=== PATIENT | female | born 2005 | race Caucasian/White ===

== ENCOUNTER 2025-06-18 11:16 | Emergency (ER) | payer SELFPAY ==
[2025-06-18 11:18] VITALS: BP 92/63; PULSE 94; RESP 17; TEMP 36.3; O2SAT 99
[2025-06-18] MEDS: ONDANSETRON INJ 4 MG/2 ML VIAL IV PUSH (13:09)
[2025-06-18] MEDS: FAMOTIDINE 20 MG/2 ML VIAL IV PUSH (13:09)
[2025-06-18] MEDS: LACTATED RINGERS 1,000 ML 999 ML IV CONT (13:09)
[2025-06-18 13:11] VITALS: BP 122/74; PULSE 77; RESP 16; O2SAT 97
--- NOTE | 2025-06-18 13:23 | ED.ALCOHOL ---
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 She states that she drank signficant amount yesterday while at work. She reports drinking vodka and emilia from the morning until the night. She states that she does not remember parts of last night. She woke up this morning with nausea and vomiting. She is unable to keep anything down. She reports intermittent abdominal pain but is has resolved at this point,. LMP 2 weeks ago Last drink: hours (ago) Chronic alcohol use: Yes Recent trauma: No Associated symptoms: nausea, vomiting and abdominal pain Treatments prior to arrival: none Related Data Allergies Allergy/AdvReac Type Severity Reaction Status Date / Time No Known Allergies Allergy Verified 06/18/25 13:08 [facility] Past Medical History Medical History (Updated 06/18/25 @ 21:08 by Gisselle Landeros MD) Patient denies medical problems Social History Social History (Updated 06/18/25 @ 13:26 by Gisselle Landeros MD) Alcohol intake: current Exam Const: General: no acute distress Nutritional Appearance: well nourished Orientation/consciousness: patient oriented x3 HENMT: Head: normal to inspection Throat: posterior oropharynx normal and uvula midline Resp: Effort & Inspection: normal respiratory effort Auscultation: clear to auscultation bilaterally Cardio: Rate: regular rate Rhythm: regular rhythm Heart sounds: no murmurs GI: GI Palp: Yes Soft to palpation, Yes Tenderness to palpation present (GI) (epigastric), No Guarding due to palpation present (GI) and No Rigid due to palpation Auscultation: normal bowel sounds Skin: General skin exam: normal color Rashes: no rashes Neuro: General: patient oriented x3, moves all extremities and CN's II-XI intact bilaterally Extrem: General: normal to inspection Psych: Mental Status: mental status grossly normal Affect: normal affect Attitude: cooperative Course Reevaluation(s) Reevaluation #1: Patient declined CT abdomen and pelvis and she left ER before I was able to reassess. Date: 06/18/25 Time: 15:00 Vital Signs Vital signs: Vital Signs Temperature 97.3 F L 06/18/25 11:18 Pulse Rate 94 06/18/25 11:18 Respiratory Rate 17 06/18/25 11:18 Blood Pressure 92/63 L 06/18/25 11:18 Pulse Oximetry 99 06/18/25 11:18 Oxygen Delivery Room Air 06/18/25 11:18 Temperature 97.3 F L 06/18/25 11:18 Pulse Rate 77 06/18/25 13:11 Respiratory Rate 16 06/18/25 13:11 Blood Pressure 122/74 06/18/25 13:11 Pulse Oximetry 97 06/18/25 13:11 Oxygen Delivery Room Air 06/18/25 11:18 MDM - Alcohol Differential Diagnosis Differential diagnosis: Likely hypomagnesemia, alcohol intoxication, alcohol ketoacidosis and other (dehydration) Lab Data Attestation: I reviewed the patient's lab results. 06/18/25 13:11 06/18/25 13:11 Labs: Lab Results 06/18/25 06/18/25 06/18/25 Range/Units 13:11 13:53 13:55 WBC 14.7 H (4.5-10.0) K/mm3 RBC 4.76 (4.2-5.4) M/mm3 Hgb 13.7 (12.0-15.0) g/dL Hct 41.8 (37.0-47.0) % MCV 87.8 (80-100) fl MCH 28.8 (26-34) pg MCHC 32.8 (32-36) g/dl RDW 15.2 H (11.5-14.5) % Plt Count 298 (150-375) k/mm3 MPV 10.2 (7.4-10.4) fl Immature Gran % (Auto) 0.5 (0-0.5) % Neut % (Auto) 88.5 H (45.5-73.1) % Lymph % (Auto) 5.7 L (18.3-44.2) % [place] % (Auto) 4.8 (2.6-8.5) % Eos % (Auto) 0.0 (0-4.4) % Baso % (Auto) 0.5 (0.2-1.2) % Lymph # (Auto) 0.84 L (0.9-3.2) K/mm3 [place] # (Auto) 0.7 H (0.1-0.6) K/mm3 Eos # (Auto) 0.0 (0-0.3) K/mm3 Baso # (Auto) 0.1 (0.0-0.1) K/mm3 Abs Immat Gran (auto) 0.08 H (0.00-0.031) K/mm3 Absolute Neuts (auto) 13.0 H (1.3-6.7) K/mm3 Absolute Nucleated RBC 0.000 (0.0-0.012) K/mm3 Nucleated RBC % 0.0 (0.0-0.2) % Sodium 139 (137-145) mmol/L Potassium 3.8 (3.4-5.0) mmol/L Chloride 106 (98-107) mmol/L Carbon Dioxide 23 (22-30) mmol/L Anion Gap 10 (4-12) mmol/L BUN 13 (7-17) mg/dL Creatinine 0.68 L (0.7-1.0) mg/dL Estim Creat Clear Calc 96 ml/min Estimated GFR > 60 (59 - ) Glucose 91 (65-110) mg/dL Calcium 9.0 (8.4-10.2) mg/dL Total Bilirubin 0.8 (0.2-1.3) mg/dL AST 48 H (14-36) U/L ALT 18 (6-35) U/L Alkaline Phosphatase 80 (38-126) U/L Total Protein 8.0 (6.3-8.2) g/dL Albumin 4.6 (3.5-5.1) g/dL Lipase 64 (23-300) U/L Urine Color Yellow (Yellow) Urine Appearance Cloudy H (Clear) Urine pH 7.5 (5.0-9.0) Ur Specific [place] 1.022 (1.001-1.035) Urine Protein 1+ H (Negative) mg/dL Urine Glucose (UA) Negative (Negative) mg/dL Urine Ketones 2+ H (Negative) mg/dL Ur Blood (Man) Negative (Negative) Urine Nitrate Negative (Negative) Urine Bilirubin Negative (Negative) Urine Urobilinogen 1.0 (<2.0) mg/dL Leukocyte Esterase Rfl Trace H (Negative) RORY/UL Urine RBC 0-2 (0-2) /hpf Urine WBC 0-5 (0-3) /hpf Ur Squamous Epith Cells Few (Few) /hpf Urine Bacteria 1+ H /hpf Urine Casts 0-2 POC Urine HCG, Qual Negative (Negative) Discharge Plan Discharge Clinical Impression: Alcoholic intoxication Nausea and vomiting Qualifiers: Vomiting type: unspecified Qualified Code(s): R11.2 - Nausea with vomiting, unspecified Patient Disposition: Elopement After Seen by Prov Patient Language: [place] Follow-up/Referrals: PHYSICIAN,ACCOUNT LEADER [Primary Care Provider, Internal Medicine]
[2025-06-18 13:25] LABS: Hematocrit 41.8 % (37.0-47.0); Hemoglobin 13.7 g/dL (12.0-15.0); Immature Granulocyte Percent A 0.5 % (0-0.5); Lymphocytes Absolute Auto 0.84 K/mm3 (0.9-3.2); Mean Corpuscular HGB Conc 32.8 g/dl (32-36); Mean Corpuscular Hemoglobin 28.8 pg (26-34); Mean Corpuscular Volume 87.8 fl (80-100); Nucleated Red Blood Cells Absolute Auto 0.000 K/mm3 (0.0-0.012); Nucleated Red Blood Cells Perc 0.0 % (0.0-0.2); Platelet Count Result 298 k/mm3 (150-375); Red Blood Count 4.76 M/mm3 (4.2-5.4); White Blood Count 14.7 K/mm3 (4.5-10.0)
[2025-06-18 13:36] LABS: Alanine Aminotransferase 18 U/L (6-35); Albumin Level 4.6 g/dL (3.5-5.1); Alkaline Phosphatase 80 U/L (38-126); Anion Gap 10 mmol/L (4-12); Aspartate Amino Transferase 48 U/L (14-36); Bilirubin,Total 0.8 mg/dL (0.2-1.3); Blood Urea Nitrogen 13 mg/dL (7-17); Calcium 9.0 mg/dL (8.4-10.2); Carbon Dioxide 23 mmol/L (22-30); Chloride 106 mmol/L (98-107); Estimated CRCL calculation 96 ml/min; Estimated Glomerular Filt Rate > 60; Glucose 91 mg/dL (65-110); Lipase 64 U/L (23-300); Potassium 3.8 mmol/L (3.4-5.0); Sodium 139 mmol/L (137-145); Total Protein 8.0 g/dL (6.3-8.2)
[2025-06-18 13:56] LABS: BEDSIDEPREGUCG Negative (Negative)
[2025-06-18 14:04] LABS: Add Urine Microscopic? YES; Appearance Urine Cloudy (Clear); Glucose Urine UA Negative (Negative); Leukocyte Esterase Ur Trace LEU/UL (Negative); Nitrate Urine Negative (Negative); Non Pathogenic Casts 0-2; Specific Grav Ur 1.022 (1.001-1.035)
--- NOTE | 2025-06-18 14:34 | PC.NURSE ---
patient declines CT scan at this time. patient states she is feeling better and would like to be discharged. EDP aware of patient refusal of CT.
--- NOTE | 2025-06-18 14:46 | PC.NURSE ---
patient removed IV prior to RN in room, PO challenge at this time.
--- NOTE | 2025-06-18 15:00 | PC.NURSE ---
patient walked out of ED without discharge paperwork or signing AMA papers. patient walked out and reported she did not vomit and she was leaving. patient walked out of ED in no distress and without difficulty.
== END 2025-06-18 15:05 | disposition left against medical advice (07) ==
LOC: ANHED 13:18
PROVIDERS: Emergency Provider General Practice
DX: R11.2 Nausea with vomiting, unspecified (principal); F10.129 Alcohol abuse with intoxication, unspecified
CPT/HCPCS: 36415; 80053; 81001; 81025; 83690; 85025; 96361; 96374; 96375; 99284; J2405; J7120